=== PATIENT | female | born 1975 | race African-American/Black ===

== ENCOUNTER 2016-11-20 06:54 | Emergency (ER) | payer MEDICAID ==
[~2016-11-20] VITALS: Ht 162.6 cm; Wt 127.0 kg
[2016-11-20 07:30] VITALS: BP 135/90
== END 2016-11-20 08:17 | disposition home or self-care (01) ==
LOC: ER 07:19
DX: J02.9 Acute pharyngitis, unspecified (principal); F17.200 Nicotine dependence, unspecified, uncomplicated; Z98.890 Other specified postprocedural states
CPT/HCPCS: 99283